=== PATIENT | male | born 1975 | race Caucasian/White ===

== ENCOUNTER 2021-09-09 13:19 | Emergency (ER) | payer OTHER ==
[2021-09-09 13:59] VITALS: BP 130/80; PULSE 85; BMI 31.9
[2021-09-09] MEDS ORDERED: IBUPROFEN 600 MG TABLET (FP) PO ONE ×2 (16:25→16:33)
== END 2021-09-09 17:32 | disposition home or self-care (01) ==
LOC: JERFT 13:19
DX: T22.112A Burn of first degree of left forearm, initial encounter (principal); X13.0XXA Inhalation of steam and other hot vapors, initial encounter
CPT/HCPCS: 99283-25